=== PATIENT | female | born 1985 | race Caucasian/White ===

== ENCOUNTER 2018-04-23 23:38 | Emergency (ER) | payer OTHER | END 2018-04-24 00:03 | disposition left against medical advice (07) | LOC: ERS 23:38 | DX: Z53.21 Procedure and treatment not carried out due to patient leaving prior to being seen by health care provider (principal) ==

== ENCOUNTER 2018-04-26 20:17 | Emergency (ER) | payer OTHER ==
[2018-04-26 21:38] LABS: #Basophils 0.1 thou/uL (0.0-0.2); #Eosinphils 0.1 thou/uL (0.0-0.7); #Lymphocytes 2.9 thou/uL (1.20-3.40); #Monocytes 0.4 thou/uL (0.11-0.59); #Neutrophils 3.7 thou/uL (1.40-6.50); %Basophils 1.1 % (0.0-1.0); %Lymphocytes 39.9 % (21.0-51.0); %Neutrophils 50.9 % (42.0-75.0); Hemoglobin 9.4 g/dL (12.0-16.0); Mean Corpuscular HGB CONC 32.1 g/dL (32.0-36.0); Mean Corpuscular Hemoglobin 23.9 pg (27.0-31.0); Mean Corpuscular Volume 74.5 fL (78.0-98.0); Mean Platelet Volume 8.4 fL (7.4-10.4); Platelet Count 262 thou/uL (130-400); RBC Distribution Width 16.7 % (11.5-14.5); Red Blood Cell (RBC) Count 3.93 mill/uL (4.20-5.40); White Blood Cell (WBC) Count 7.2 thou/uL (4.8-10.8)
[2018-04-26 22:00] LABS: ALT (SGPT) 8 U/L (8-55); AST (SGOT) 13 U/L (5-34); Albumin 3.7 g/dL (3.5-5.0); Alkaline Phosphatase 108 U/L (40-150); Anion Gap 12 mmol/L (10-20); BUN (Urea Nitrogen) 14 mg/dL (7.0-18.7); Bilirubin, Total 0.4 mg/dL (0.2-1.2); Calc. Creatinine Clearance 0 mL/min (70-130); Calcium 8.5 mg/dL (7.8-10.44); Carbon Dioxide 23 mmol/L (22-29); Chloride 108 mmol/L (98-107); Estimated GFR-MDRD Greater than 90; Glucose 116 mg/dL (70-105); Potassium 3.7 mmol/L (3.5-5.1); Protein, Total 6.7 g/dL (6.0-8.3); Sodium 139 mmol/L (136-145)
--- NOTE | 2018-04-26 22:45 | ULT ---
PELVIC ULTRASOUND: 04/26/18 HISTORY: Cramping. Bleeding. 7 weeks . COMPARISON: None. TECHNIQUE: Transabdominal and endovaginal imaging of the pelvis is performed. Ovaries are interrogated with thompson scale, color flow, doppler imaging with spectral waveform analysis. FINDINGS: The uterus is identified. There are no myometrial masses. The uterus measures 10.3 x 5.0 cm in the sa gittal plane. Within the endometrium, there is a gestational sac. The yolk sac is not appreciated. Th ere appears to be a pole with a crown-rump length of 0.38 cm corresponding to a gestational age of 6 weeks, 0 days. Absent heart tones. Hypoechoic area in the left adnexa likely representing a left ovarian corpus luteal cyst measuring 1.6 x 1.7 x 1.4 cm. Overall, the left ovary measures 2.7 x 3.1 x 3.4 cm. Right ovary is not appreciated due to bowel loops. There is a small amount of free fluid in the pelvis. OVARIAN DOPPLER: There is vascular flow to the left ovary. IMPRESSION: 1. Single intrauterine gestation. Gestational age by crown-rump length is 6 weeks, 0 days. heart tones are not appreciated. 2. Probable corpus luteal cyst in the left ovary. 3. Small amount of free fluid in the pelvis. 4. Followup ultrasound and serial beta HCG is recommended. POS: [facility]
[2018-04-29 20:01] LABS: Chlamydia by PCR Not Detected (NotDetected); GC by PCR Not Detected (NotDetected)
== END 2018-04-26 22:23 | disposition home or self-care (01) ==
LOC: ERS 20:17
DX: O20.0 Threatened abortion (principal); O99.341 Other mental disorders complicating pregnancy, first trimester; F32.9 Major depressive disorder, single episode, unspecified
CPT/HCPCS: 36415; 76856; 80053; 84702; 85025; 87480; 87491; 87510; 87591; 87660

== ENCOUNTER 2018-06-18 13:31 | Emergency (ER) | payer OTHER ==
[2018-06-18] MEDS ORDERED: Ondansetron ODT 4 MG TAB ONE (13:34)
[2018-06-18 14:29] LABS: #Eosinphils 0.1 thou/uL (0.0-0.7); #Lymphocytes 1.8 thou/uL (1.20-3.40); #Monocytes 0.4 thou/uL (0.11-0.59); #Neutrophils 6.7 thou/uL (1.40-6.50); %Basophils 0.5 % (0.0-1.0); %Eosinophils 1.7 % (0.0-10.0); %Lymphocytes 19.7 % (21.0-51.0); %Neutrophils 74.2 % (42.0-75.0); Hemoglobin 10.3 g/dL (12.0-16.0); Mean Corpuscular HGB CONC 32.5 g/dL (32.0-36.0); Mean Corpuscular Hemoglobin 23.9 pg (27.0-31.0); Mean Corpuscular Volume 73.5 fL (78.0-98.0); Mean Platelet Volume 9.5 fL (7.4-10.4); Platelet Count 306 thou/uL (130-400); RBC Distribution Width 15.1 % (11.5-14.5)
--- NOTE | 2018-06-18 14:37 | RAD ---
PORTABLE AP CHEST: Date: 06/18/18 HISTORY: Chest pain. Shortness of breath. COMPARISON: 09/08/16. FINDINGS: Cardiac silhouette and pulmonary vasculature are within normal limits. Lungs are clear. There has bee n no interval change from prior study. IMPRESSION: No acute cardiopulmonary process. POS: [facility]
[2018-06-18 14:54] LABS: CKMB 0.8 ng/mL (0-6.6); Troponin I Less than 0.010 ng/mL (< 0.028)
[2018-06-18 15:01] LABS: ALT (SGPT) 12 U/L (8-55); AST (SGOT) 24 U/L (5-34); Albumin 3.9 g/dL (3.5-5.0); Alkaline Phosphatase 119 U/L (40-150); Anion Gap 14 mmol/L (10-20); BUN (Urea Nitrogen) 17 mg/dL (7.0-18.7); Bilirubin, Total 0.4 mg/dL (0.2-1.2); CK (CPK) 152 U/L (29-168); Calc. Creatinine Clearance 0 mL/min (70-130); Calcium 8.6 mg/dL (7.8-10.44); Carbon Dioxide 19 mmol/L (22-29); Chloride 110 mmol/L (98-107); Estimated GFR-MDRD 79; Globulin 3.6 g/dL (2.4-3.5); Glucose 103 mg/dL (70-105); Lipase 29 U/L (8-78); Potassium 3.8 mmol/L (3.5-5.1); Protein, Total 7.5 g/dL (6.0-8.3); Sodium 139 mmol/L (136-145)
[2018-06-18] MEDS ORDERED: Pantoprazole 40 MG VIAL ONE (15:09)
--- NOTE | 2018-06-23 13:21 | EKG ---
Test Reason : CP Blood Pressure : / mmHG Vent. Rate : 073 BPM Atrial Rate : 073 BPM P-R Int : 150 ms QRS Dur : 094 ms QT Int : 392 ms P-R-T Axes : 044 030 004 degrees QTc Int : 431 ms Normal sinus rhythm Incomplete right bundle branch block Borderline ECG Confirmed by ARABELLA MUNROE ([id number]), department editor MARISSA GRAHAM ([id number]) on 06/23/2018 1:21:27 PM Referred By: Confirmed By:ARABELLA MUNROE
== END 2018-06-18 16:04 | disposition home or self-care (01) ==
LOC: ERS 13:31
DX: R10.13 Epigastric pain (principal)
CPT/HCPCS: 71045; 80053; 82553; 83690; 84484; 85025; 93005; 96374; C9113; Q0162

== ENCOUNTER 2018-10-15 15:30 | Emergency (ER) | payer BC, OTHER ==
[2018-10-15 15:54] LABS: #Basophils 0.1 thou/uL (0.0-0.2); #Eosinphils 0.1 thou/uL (0.0-0.7); #Lymphocytes 2.6 thou/uL (1.20-3.40); #Monocytes 0.5 thou/uL (0.11-0.59); #Neutrophils 4.9 thou/uL (1.40-6.50); %Eosinophils 1.6 % (0.0-10.0); %Lymphocytes 31.5 % (21.0-51.0); %Monocytes 5.8 % (0.0-10.0); %Neutrophils 60.1 % (42.0-75.0); Hemoglobin 11.4 g/dL (12.0-16.0); Mean Corpuscular HGB CONC 32.5 g/dL (32.0-36.0); Mean Corpuscular Hemoglobin 25.8 pg (27.0-31.0); Mean Corpuscular Volume 79.5 fL (78.0-98.0); Platelet Count 295 thou/uL (130-400); RBC Distribution Width 18.3 % (11.5-14.5); Red Blood Cell (RBC) Count 4.43 mill/uL (4.20-5.40); White Blood Cell (WBC) Count 8.1 thou/uL (4.8-10.8)
--- NOTE | 2018-10-15 19:07 | ULT ---
ULTRASOUND PELVIC ULTRASOUND TRANSVAGINAL DOPPLER DUPLEX: 10/15/2018 HISTORY: A 33-year-old female with first trimester vaginal bleeding. TECHNIQUE: Transabdominal transducer used to evaluate intrapelvic contents using the urinary bladder as an acous tic window. Endovaginal transducer used to visualize intrapelvic contents in greater detail. Color fl ow Doppler and Pulsed Doppler spectral waveform analysis of ovaries. FINDINGS: Intrapelvic contents are very poorly visualized on the transabdominal images due to body habitus and the non-filled urinary bladder. All the findings are based on the transvaginal images. There are two gestational sacs, very close to each other. Gestational sac A: 1.7 x 1.5 cm, corresponding to approximately 6w 3d. Yolk sac visualized. Tiny, 0.2 cm nubbin of intermediate echogenicity abutting the yolk sac, which may or may not represent an e mbryonic pole, with CRL corresponding to 5w 5d. No embryonic heart activity visualized. Gestational sac B: 0.9 x 0.7 cm, corresponding to 5w 4d. No yolk sac or embryonic pole visualized. No free fluid in the cul-de-sac. Right ovary not visualized. Left ovary 3 x 2 x 1.5 cm, with blood flow demonstrated by Doppler. No corpus luteal cyst visualized . IMPRESSION: 1. Diamniotic twin intrauterine gestation. One of them contains a yolk sac and a possible embryonic pole (5 weeks 5 days), but it may be too early for detection of embryonic heart activity. The other one does not have internal contents visualized. 2. Recommend serial follow-up serum beta hCG levels, and if clinically indicated, follow-up pelvic a nd transvaginal ultrasound. LIANE Rai POS: [facility]
[2018-10-15 20:01] LABS: Bilirubin Negative (Negative); Blood, Urine Negative (Negative); Clarity CLEAR (Clear); Glucose, Urine (Dipstick) Negative (Negative); Leukocyte Negative (Negative); Nitrite Negative (Negative); Protein, Urine (Dipstick) Negative (Neg-Trace); Specific Gravity, Urine 1.006 (1.002-1.036); Urobilinogen 0.2 mg/dL (0.2-1.0)
== END 2018-10-15 20:28 | disposition home or self-care (01) ==
LOC: ERS 15:30
DX: O20.0 Threatened abortion (principal); O30.041 Twin pregnancy, dichorionic/diamniotic, first trimester; O99.341 Other mental disorders complicating pregnancy, first trimester; F32.9 Major depressive disorder, single episode, unspecified; Z3A.01 Less than 8 weeks gestation of pregnancy
CPT/HCPCS: 36415; 76815; 81003; 84702; 85025

== ENCOUNTER 2019-07-10 07:15 | Outpatient (CLI) | payer BC ==
--- NOTE | 2019-07-10 08:39 | ULT ---
OB ULTRASOUND: Date: 07/10/19 HISTORY: anatomy. FINDINGS: A single live intrauterine gestation is seen with measurements corresponding to an estimated gestatio nal age of 18 weeks/6 days and LISA of 12/05/2019. The estimated weight measures 263 gm, or 9 oz . measurements are as follows: BPD: 4.15 cm, 18 weeks/4 days HC: 16.05 cm, 18 weeks/6 days AC: 13.58 cm, 19 weeks/0 days FL: 2.86 cm, 18 weeks/5 days heart rate measures 133 beats/minute. Placenta is posteriorly located without evidence of place nta previa. Amniotic fluid appears adequate. anatomy evaluation was limited due to positioning and maternal body habitus. The 3 vessel cord, lips/nose, and cerebellum are not well seen. The cord insertion, kidneys, bladder, spine, stom ach, 4 chamber heart, and lateral ventricles, and upper/lower extremities are visualized without defi nite anomalies. IMPRESSION: Single live intrauterine of 18 weeks/6 days estimated gestational age and LISA at 12/05/2019 . POS: [facility]
== END 2019-07-10 07:16 | disposition home or self-care (01) ==
LOC: SCSULT 07:15
PROVIDERS: ATTEND Family Medicine
DX: Z34.82 Encounter for supervision of other normal pregnancy, second trimester (principal); Z3A.18 18 weeks gestation of pregnancy
CPT/HCPCS: 76805

== ENCOUNTER 2019-08-01 09:11 | Day surgery (SDC) | payer BC ==
[2019-08-01 09:54] VITALS: BMI 46.6
[2019-08-01] MEDS ORDERED: hydrALAZINE 20 MG/ML VIAL SLOW IVP PRN (10:06)
--- NOTE | 2019-08-01 11:50 | ULT ---
US OB [facility] History: Contractions. Comparison: Ultrasound July 10, 2019 Findings: Real-time grayscale color and spectral analysis of the gravid uterus was performed transabd ominal approach. Single viable intrauterine . Amniotic fluid index measures 8.8 cm. Cervix is closed measuring 3 cm. Heart rate documented at 135 bpm. The placenta is posterior. No placenta previa. Variable presentation. Impression: Normal single viable intrauterine with slightly low amniotic fluid index.
--- NOTE | 2019-08-01 12:28 | PRG ---
DATE OF SERVICE: 08/01/2019 TIME OF SERVICE: 12 o'clock. PRESENTING COMPLAINT: Contractions at 23 weeks, status post intercourse. HISTORY OF PRESENT ILLNESS: Ms. Paz is a 34-year-old 5, para 3, AB 2, who has had section for progress and repeat with twins. She reports intercourse last night and contraction like pain since. She denies rupture of membranes, bleeding. She is currently 23 weeks' gestation with LISA of 11/28. INSULATION CUPOLA CHARGER HISTORY: As noted in the HPI. Blood type O positive, antibody negative, rubella immune, VDRL nonreactive. PAST MEDICAL HISTORY: Gestational hypertension in two pregnancies, none in the last. Obesity. PAST SURGICAL HISTORY: Gastric sleeve and C-sections. ALLERGIES: DENIES. MEDICATIONS: vitamins and baby aspirin. SOCIAL HISTORY: Denies tobacco, alcohol, or drug use. FAMILY HISTORY: Noncontributory. REVIEW OF SYSTEMS: Noncontributory. PHYSICAL EXAMINATION: GENERAL: White female in no acute distress. VITAL SIGNS: Temperature 98.0, pulse 85, respirations are 18, and blood pressure 108/72. HEENT: Within normal limits. LUNGS: Clear to auscultation bilaterally. ABDOMEN: Soft and nontender, without palpable contractions. PELVIS: Vulva without lesions. Vaginal exam was deferred. EXTREMITIES: Without clubbing, cyanosis, or edema. heart rate tracing was carried out. No contractions were noted. Baseline is at 140s to 150s with intermittent monitoring at early gestation. LABORATORY DATA: Ultrasound was performed, which revealed a cervical length of 3 cm. Normal [place], transverse presentation, posterior placenta. IMPRESSION: Cramping post coital at 23 weeks' gestation. No evidence of labor. Normal cervical length. PLAN: ER precautions, discharge home, keep scheduled followup with Dr. Pryor. Job ID: [id number]
== END 2019-08-01 12:11 | disposition home or self-care (01) ==
LOC: L&D/OP 09:11
PROVIDERS: ATTEND Family Medicine
DX: O47.02 False labor before 37 completed weeks of gestation, second trimester (principal); O09.522 Supervision of elderly multigravida, second trimester; O34.219 Maternal care for unspecified type scar from previous cesarean delivery; O99.212 Obesity complicating pregnancy, second trimester; Z3A.23 23 weeks gestation of pregnancy; Z79.82 Long term (current) use of aspirin
CPT/HCPCS: 76815; 99282

== ENCOUNTER 2019-09-07 10:14 | Day surgery (SDC) | payer BC ==
[2019-09-07 11:28] VITALS: BMI 47.2
[2019-09-07] MEDS ORDERED: Acetaminophen 500 MG TAB PO SCH (11:30)
[2019-09-07] MEDS ORDERED: Iron Sucrose Complex 500 MG in Sodium Chloride 0.9% 250 ML 250 ML IVPB SCH (11:30)
[2019-09-07] MEDS ORDERED: Sodium Chloride 0.9% 1,000 ML IV SCH (11:30)
== END 2019-09-07 15:24 | disposition home health service (06) ==
LOC: L&D/OP 10:14
PROVIDERS: ATTEND Family Medicine
DX: O99.019 Anemia complicating pregnancy, unspecified trimester (principal); D64.9 Anemia, unspecified; Z79.82 Long term (current) use of aspirin; Z79.899 Other long term (current) drug therapy; Z3A.00 Weeks of gestation of pregnancy not specified
CPT/HCPCS: J1756; J7050

== ENCOUNTER 2019-11-19 20:57 | Day surgery (SDC) | payer BC ==
[2019-11-19 21:46] VITALS: BP 122/76; TEMP 98.3; BMI 49.2
[2019-11-19] MEDS ORDERED: hydrALAZINE 20 MG/ML VIAL SLOW IVP PRN (21:58)
--- NOTE | 2019-11-19 22:26 | HP ---
TIME: 2200 hours. Original time of evaluation roughly 2145 hours. LOCATION: Labor and Delivery, bed 2. This is a patient of Dr. Adelaide Pryor. CHIEF COMPLAINT: Home blood pressure reading was slightly elevated at 150s/90s by her report. HISTORY OF PRESENT ILLNESS: This is a 34-year-old, G5, P3 with a history of two previous C-sections, who has a repeat scheduled on November 21. She now presents at 38 weeks and 4 days, stating that she took her blood pressure at home and it was in the 150s/90s, but she is asymptomatic. Blood pressures here in Labor and Delivery were 122/76 and 126/77. She has good movement and denies headaches, visual changes, or other complaints. REVIEW OF SYSTEMS: Complete review of systems was done and is otherwise negative unless specified in the HPI. PAST MEDICAL HISTORY: Negative. PAST SURGICAL HISTORY: Includes gastric sleeve and x2. ALLERGIES: NONE. SOCIAL HISTORY: Negative. MEDICATIONS: Include vitamins. PHYSICAL EXAMINATION: VITAL SIGNS: Her blood pressure is 122/76 and 126/77. She is afebrile and normotensive. Pulse is in the 80s to 90s. GENERAL: She is in no acute distress. ABDOMEN: Soft and nontender. There is no gross evidence of bleeding or ruptured membranes. Cervical exam was deferred as there is no history of contractions. On the monitor, the heart tracing is category 1/reactive and there are no contractions. ASSESSMENT: This is a patient at early term, who is scheduled for a in 2 days as she has a history of prior x2 with the last one being a set of twins. She states that she had elevated blood pressure at home, but here they have been so far normotensive. PLAN: 1. Blood pressure observation here. 2. We will get screening CMP and CBC for now. 3. If blood pressures remain acceptable, we can have her follow up tomorrow with a blood pressure check with her provider. Job ID: [id number]
[2019-11-19 22:36] LABS: #Basophils 0.1 thou/uL (0.0-0.2); #Eosinphils 0.1 thou/uL (0.0-0.7); #Lymphocytes 2.4 thou/uL (1.20-3.40); #Monocytes 0.3 thou/uL (0.11-0.59); #Neutrophils 4.9 thou/uL (1.40-6.50); %Basophils 0.9 % (0.0-1.0); %Eosinophils 0.9 % (0.0-10.0); %Lymphocytes 30.5 % (21.0-51.0); %Monocytes 3.9 % (0.0-10.0); %Neutrophils 63.8 % (42.0-75.0); Hemoglobin 10.4 g/dL (12.0-16.0); Mean Corpuscular HGB CONC 33.4 g/dL (32.0-36.0); Mean Corpuscular Hemoglobin 26.7 pg (27.0-31.0); Mean Platelet Volume 8.3 fL (7.4-10.4); Platelet Count 271 thou/uL (130-400); RBC Distribution Width 16.7 % (11.5-14.5); Red Blood Cell (RBC) Count 3.89 mill/uL (4.20-5.40); White Blood Cell (WBC) Count 7.7 thou/uL (4.8-10.8)
[2019-11-19 22:57] LABS: ALT (SGPT) 7 U/L (8-55); AST (SGOT) 11 U/L (5-34); Albumin 2.9 g/dL (3.5-5.0); Alkaline Phosphatase 164 U/L (40-110); Anion Gap 12 mmol/L (10-20); BUN (Urea Nitrogen) 7 mg/dL (7.0-18.7); Bilirubin, Total 0.5 mg/dL (0.2-1.2); Calc. Creatinine Clearance 252 mL/min (70-130); Calcium 8.6 mg/dL (7.8-10.44); Carbon Dioxide 22 mmol/L (22-29); Chloride 107 mmol/L (98-107); Estimated GFR-MDRD Greater than 90; Globulin 3.4 g/dL (2.4-3.5); Glucose 82 mg/dL (70-105); Potassium 3.7 mmol/L (3.5-5.1); Protein, Total 6.3 g/dL (6.0-8.3); Sodium 137 mmol/L (136-145)
== END 2019-11-19 23:36 | disposition home or self-care (01) ==
LOC: L&D/OP 20:57
PROVIDERS: ATTEND Family Medicine
DX: O99.89 Other specified diseases and conditions complicating pregnancy, childbirth and the puerperium (principal); R03.0 Elevated blood-pressure reading, without diagnosis of hypertension; O34.219 Maternal care for unspecified type scar from previous cesarean delivery; O09.523 Supervision of elderly multigravida, third trimester; Z3A.38 38 weeks gestation of pregnancy; Z98.84 Bariatric surgery status
CPT/HCPCS: 36415; 80053; 85025

== ENCOUNTER 2019-11-21 05:45 | Inpatient (IN) | payer BC ==
[2019-11-21 06:26] VITALS: BMI 49.2
[2019-11-21] MEDS ORDERED: Promethazine HCl 25 MG/ML VIAL IM PRN ×2 (06:27→07:59)
[2019-11-21] MEDS ORDERED: Ondansetron PF 4 MG/2 ML Vial IVP PRN ×3 (06:27→10:56)
[2019-11-21] MEDS ORDERED: CEFAZOLIN 2 GM in Premix Bag 1 BAG IVPB SCH (06:27)
[2019-11-21] MEDS ORDERED: Bicitra 30 ML UDCUP PO SCH (06:27)
[2019-11-21] MEDS ORDERED: hydrALAZINE 20 MG/ML VIAL SLOW IVP PRN ×2 (06:27→10:56)
[2019-11-21] MEDS ORDERED: Lactated Ringer's 1,000 ML IV SCH (06:27)
[2019-11-21 06:39] LABS: Hemoglobin 10.6 g/dL (12.0-16.0); Mean Corpuscular HGB CONC 32.6 g/dL (32.0-36.0); Mean Corpuscular Hemoglobin 25.7 pg (27.0-31.0); Mean Corpuscular Volume 78.8 fL (78.0-98.0); Mean Platelet Volume 8.4 fL (7.4-10.4); Platelet Count 283 thou/uL (130-400); RBC Distribution Width 16.7 % (11.5-14.5); Red Blood Cell (RBC) Count 4.14 mill/uL (4.20-5.40); White Blood Cell (WBC) Count 7.7 thou/uL (4.8-10.8)
[2019-11-21 07:22] LABS: Hep B Surf Ag Non-Reactive S/CO (NonReactive)
[2019-11-21] MEDS ORDERED: MORPHINE 5 MG/10 ML PF VIAL ONE (07:23)
[2019-11-21] MEDS ORDERED: PHENYLEPHRINE-NS 100 MCG/ML 10 ML SYRINGE ONE (07:25)
[2019-11-21] MEDS ORDERED: Oxytocin 10 UNITS/ML VIAL ONE (07:25)
[2019-11-21 07:42] LABS: Syphilis Antibody Nonreactive (Nonreactive); Syphilis Antibody Index 0.03 S/CO (<1.00 Non-Reactive)
[2019-11-21] MEDS ORDERED: Promethazine HCl 25 MG SUPP PR PRN (07:59)
[2019-11-21] MEDS ORDERED: Ondansetron HCl/PF 4 MG/2 ML Vial IVP PRN (07:59)
[2019-11-21] MEDS ORDERED: HYDROmorphone 2 MG/ML VIAL SLOW IVP PRN (07:59)
[2019-11-21] MEDS ORDERED: diphenhydrAMINE 50 MG/ML VIAL IVP PRN (07:59)
[2019-11-21] MEDS ORDERED: Naloxone HCl 0.4 mg/ml Vial IV PRN (07:59)
[2019-11-21] MEDS ORDERED: Meperidine HCl/PF 25 MG/ML VIAL SLOW IVP PRN (07:59)
[2019-11-21] MEDS ORDERED: Naloxone HCl 0.4 mg/ml Vial IVP PRN ×2 (07:59)
[2019-11-21] MEDS ORDERED: L&D-Morphine 4 MG/ML VIAL SLOW IVP PRN (07:59)
[2019-11-21] MEDS ORDERED: Communication Order-Pharmacy FS SCH (08:00)
[2019-11-21] MEDS ORDERED: Ketorolac Tromethamine 30 MG/ML VIAL IVP SCH (08:00)
[2019-11-21] MEDS ORDERED: Ondansetron PF 4 MG/2 ML Vial ONE (09:03)
[2019-11-21] MEDS ORDERED: Promethazine HCl 25 MG/ML VIAL ONE (09:33)
[2019-11-21] MEDS ORDERED: NS / Oxytocin 40 units/1000ml 1,000 ML ONE (09:59)
--- NOTE | 2019-11-21 10:32 | OP ---
DATE OF PROCEDURE: 11/21/2019 PREOPERATIVE DIAGNOSIS: Term intrauterine with previous section x2. POSTOPERATIVE DIAGNOSIS: Term intrauterine with previous section x2, status post delivery. PROCEDURE PERFORMED: Repeat low-transverse section. SENIOR SOFTWARE MANAGER: Dr. Roque. SECOND SENIOR SOFTWARE MANAGER: Aurea Beckham, MS-3. COMPLICATIONS: No complications. ANESTHESIA: Spinal anesthetic. DESCRIPTION OF PROCEDURE: Darlene is a 34-year-old female, G3, P2-1-0-3 at 39 weeks with previous section x2. Consents were signed after discussing risks, benefits, and alternatives. The patient was taken to the operating room. After spinal anesthetic, the patient was placed in supine position. A wedge was placed under her right flank. A Alexis catheter was placed, and the abdomen was prepped and draped in the usual sterile technique. A Pfannenstiel incision was made through the old scar. Subcutaneous tissue was opened with sharp dissection. Fascia was opened with sharp dissection. Peritoneum was opened was sharp and blunt dissection. Noted that the abdomen was still with a gravid uterus. An Sb O retractor was placed, and the bladder flap was incised inferiorly. A low-transverse incision was made on the uterus. Membranes were ruptured. Clear fluid was encountered, and a viable female was delivered from vertex presentation. The breathed and cried spontaneously. After approximately 30 seconds, the cord was cut. The had been dried, was handed to the care of the neonatology team. Cord blood was obtained. The placenta was delivered with gentle traction of the cord and appeared intact. Ring forceps were placed over the hysterotomy edges, and the uterus was wiped clean with a wet lap. The uterus was then closed in continuous fashion using 0 Monocryl with an additional [id number] in the lower left lateral edge for hemostasis. Noted the sponge and instrument counts were correct. There was no bleeding from the bladder flap or peritoneal edges. The fascia was then closed in continuous fashion using 0 Vicryl. Sponge and instrument counts were correct. Wound was irrigated. Few bleeders in subcutaneous tissue were cauterized, and the subcutaneous tissue was closed with running fashion of 2-0 plain. The skin was then closed using delia, and a wound VAC was applied. The patient tolerated the procedure to go to recovery room in good condition. Noted that the baby is a viable female , weight and Apgars pending at this time. QBL pending. EBL approximately 400 mL. Job ID: [id number]
[2019-11-21] MEDS ORDERED: Ketorolac Tromethamine 30 MG/ML VIAL ONE (10:44)
[2019-11-21] MEDS ORDERED: NS / Oxytocin 40 units/1000ml 1,000 ML IV SCH (10:45)
[2019-11-21] MEDS ORDERED: Bisacodyl 10 MG SUPP PR PRN (10:56)
[2019-11-21] MEDS ORDERED: Lanolin Ointment 7 GM TUBE TOP PRN (10:56)
[2019-11-21] MEDS ORDERED: Acetaminophen/Codeine 30-300mg Tablet PO PRN (10:56)
[2019-11-21] MEDS ORDERED: Acetaminophen 325 MG TAB PO PRN (10:56)
[2019-11-21] MEDS ORDERED: Simethicone Chewable 80 MG TAB PO PRN (10:56)
[2019-11-21] MEDS ORDERED: diphenhydrAMINE 25 MG CAP PO PRN (10:56)
[2019-11-21] MEDS: Ibuprofen 800 MG TAB PO SCH ×2 (13:01→21:48)
[2019-11-21] MEDS: Ferrous Sulfate 325 MG TAB PO SCH (21:40)
[2019-11-21] MEDS: Ketorolac Tromethamine 30 MG/ML VIAL IVP PRN (21:46)
[2019-11-21] MEDS: Docusate Calcium (SURFAK) 240 MG CAP PO SCH (21:47)
[2019-11-22] MEDS ORDERED: Sodium Chloride 0.9% 10 ML ONE (05:38)
[2019-11-22] MEDS: Ketorolac Tromethamine 30 MG/ML VIAL IVP PRN (05:53)
[2019-11-22] MEDS: Ibuprofen 800 MG TAB PO SCH ×3 (05:54→21:41)
[2019-11-22 06:03] LABS: Hemoglobin 10.6 g/dL (12.0-16.0); Mean Corpuscular HGB CONC 33.3 g/dL (32.0-36.0); Mean Corpuscular Hemoglobin 26.5 pg (27.0-31.0); Mean Corpuscular Volume 79.5 fL (78.0-98.0); Mean Platelet Volume 8.2 fL (7.4-10.4); Platelet Count 260 thou/uL (130-400); RBC Distribution Width 16.5 % (11.5-14.5); Red Blood Cell (RBC) Count 3.99 mill/uL (4.20-5.40); White Blood Cell (WBC) Count 8.6 thou/uL (4.8-10.8)
[2019-11-22] MEDS: Ferrous Sulfate 325 MG TAB PO SCH ×2 (07:39→20:33)
[2019-11-22] MEDS: Docusate Calcium (SURFAK) 240 MG CAP PO SCH ×2 (08:51→20:43)
[2019-11-22] MEDS: Prenatal Vitamin 1 TAB PO SCH (08:51)
[2019-11-22] MEDS: HYDROcodone/Acetaminophen 5/325 mg Tablet PO PRN (20:00)
[2019-11-23] MEDS: Ibuprofen 800 MG TAB PO SCH ×3 (06:00→21:40)
--- NOTE | 2019-11-23 06:11 | PDOC.PP ---
Post Progress Note Post Day #: 2 Subjective: Some incisional pain PO intake tolerated: yes Flatus: yes Ambulation: yes Vital Signs (12 hours) Temp Pulse Resp BP Pulse Ox 11/23/19 04:05 98.3 F 59 L 14 136/72 98 11/23/19 00:39 98.4 F 71 12 110/62 98 11/22/19 19:14 98.8 F 74 16 120/59 L 97 Weight Weight 305 lb Vitals reviewed for last 24 hrs - Physical Examination General: NAD Cardiovascular: no m/r/g Abdominal: + bowel sounds, no distention, appropriately TTP Extremities: negative homans (B) Skin: CS incision dry & intact (Wound vac in use and covered. Op motre states delia), no rash Neurological: no gross focal deficits Psychiatric: A&Ox3, normal affect Result Diagrams: 11/22/19 05:38 Additional Labs: Post Labs Blood Type O POSITIVE 11/21/19 06:28 Hep Bs Antigen Non-Reactive S/CO (NonReactive) 11/21/19 06:28 (1) delivery delivered Code(s): O82 - ENCOUNTER FOR DELIVERY WITHOUT INDICATION Status: Acute (2) Obesity Code(s): E66.9 - OBESITY, UNSPECIFIED Status: Acute - Assessment/Plan POD2 doing well...addressed poss [facility] home vs continued in-house obs today. Will kep inhouse due to BMI, encourage ambulation. Afebrile. Likely home on POD3.
[2019-11-23] MEDS: Docusate Calcium (SURFAK) 240 MG CAP PO SCH ×2 (09:23→21:40)
[2019-11-23] MEDS: Prenatal Vitamin 1 TAB PO SCH (09:23)
[2019-11-23] MEDS: HYDROcodone/Acetaminophen 5/325 mg Tablet PO PRN ×3 (09:25→23:39)
[2019-11-23] MEDS: Ferrous Sulfate 325 MG TAB PO SCH ×2 (09:26→20:24)
[2019-11-24] MEDS: HYDROcodone/Acetaminophen 5/325 mg Tablet PO PRN ×2 (04:03→10:23)
[2019-11-24] MEDS: Ibuprofen 800 MG TAB PO SCH (06:16)
[2019-11-24 08:17] VITALS: BP 132/73; TEMP 98.6
[2019-11-24] MEDS: Ferrous Sulfate 325 MG TAB PO SCH (09:31)
[2019-11-24] MEDS: Docusate Calcium (SURFAK) 240 MG CAP PO SCH (09:38)
[2019-11-24] MEDS: Prenatal Vitamin 1 TAB PO SCH (09:38)
--- NOTE | 2019-11-25 20:37 | PQF ---
JESUS MELGAR ANNA P MD [id number] [facility] [id number] CLINICAL DOCUMENTATION CLARIFICATION FORM: POST DISCHARGE Addendum to original discharge summary date: ____ Late entry note date: __ DATE: 11/25/2019 ATTN: Adelaide Pryor Please exercise your independent, professional judgment in responding to the clarification form. Clinical indicators are provided on the bottom of this form for your review Please check appropriate box(s): [ ] Acute blood loss anemia [ ] Post-op anemia related to acute blood loss [ ] Other diagnosis [ ] Unable to determine In addition, please specify: Present on Admission (POA): [ ] Yes [ ] No [ ] Unable to determine For continuity of documentation, please document condition throughout progress notes and discharge summary. Thank You. CLINICAL INDICATORS - SIGNS / SYMPTOMS / LABS Labor and delivery HP 11/21 "Anemia" OP Note 11/21 "EBL:400ml" Labs RBC: 11/21=4.14 11/22=3.99 Labs Hgb: 11/21=10.6 11/22=10.6 Labs Hct: 11/21=32.7 11/22=31.7 Vital signs BP: 11/2100=562/58 11/2299=724/55,120/58,109/54,120/59 RISK FACTORS Labor and delivery HP 11/21-39 weeks gestation OP Note 11/21-s/p CS delivery PN 11/23-Obesity TREATMENTS: Hematology Monitoring-Collected 11/21 IVF-MAR 11/21 Ferrous Sulfate 325mg Oral-DEC 01 (This form is maintained as a part of the permanent medical record) 2014 [employer] All Rights Reserved Marc [email or web address] [phone]
== END 2019-11-24 11:00 | disposition home or self-care (01) | DRG 788 ==
LOC: L&D 05:45 → 3SE 12:19
PROVIDERS: ADMIT Family Medicine; ATTEND Family Medicine
PROC: 10D00Z1 Extraction of Products of Conception, Low, Open Approach (ICD-10-PCS; principal; 2019-11-21)
DX: O34.211 Maternal care for low transverse scar from previous cesarean delivery (principal); O99.02 Anemia complicating childbirth; D64.9 Anemia, unspecified; O99.214 Obesity complicating childbirth; E66.9 Obesity, unspecified; Z3A.39 39 weeks gestation of pregnancy; Z37.0 Single live birth; Z90.3 Acquired absence of stomach [part of]; Z79.82 Long term (current) use of aspirin
CPT/HCPCS: 36415; 51702; 80053; 85025; 85027; 86780; 86850; 86900; 86901; 87340; 99283; J0690; J1200; J1885; J2274; J2405; J2550; J2590